=== PATIENT | female | born 1985 ===

== ENCOUNTER 2018-03-01 11:25 | Day surgery (SDC) | payer OTHER ==
[2018-02-19 10:46] VITALS: BMI 30.9
[2018-03-01] MEDS ORDERED: Propofol 10 mg/ml Inj (20 ML) ONE ×2 (12:10→12:32)
[2018-03-01] MEDS ORDERED: Albuterol HFA 90 mcg/actuation (8 g) ONE (12:23)
[2018-03-01] MEDS ORDERED: Sodium Chloride 0.9% 1,000 ML IV SCH ×2 (13:00)
[2018-03-01 13:09] VITALS: O2SAT 99
[2018-03-01 13:41] VITALS: BP 113/65; PULSE 80; RESP 16; TEMP 97.9
== END 2018-03-01 13:54 | disposition home or self-care (01) ==
LOC: ENDO 11:25
PROVIDERS: ATTEND Internal Medicine
DX: K62.1 Rectal polyp (principal); K64.8 Other hemorrhoids; I10 Essential (primary) hypertension; I49.9 Cardiac arrhythmia, unspecified; G43.909 Migraine, unspecified, not intractable, without status migrainosus; F17.210 Nicotine dependence, cigarettes, uncomplicated
CPT/HCPCS: 45380; 84703; 88305; J2704; J7030; J7040